=== PATIENT | male | born 1945 | race Caucasian/White ===

== ENCOUNTER 2021-10-23 08:30 | Inpatient (IN) | payer MEDICARE ==
[~2021-10-23] VITALS: Ht 193 cm; Wt 138.7 kg
[2021-10-23] VITALS (7 sets, daily range): BP systolic 114–148; BP diastolic 56–78
[2021-10-23] MEDS ORDERED: fentaNYL PF VIAL 100 MCG/2 ML VIAL ONE (08:40)
[2021-10-23] MEDS ORDERED: HEPARIN for IV BOLUS 10,000 UNIT/10 ML VIAL. ONE (08:40)
[2021-10-23] MEDS ORDERED: MIDAZOLAM HCL/PF 2 MG/2 ML VIAL. ONE (08:40)
[2021-10-23] MEDS ORDERED: VERAPAMIL 5 MG/2 ML VIAL. ONE (08:51)
[2021-10-23] MEDS ORDERED: NITROGLYCERIN 200 MCG/2 ML SYRINGE FOR CATH/VASC LAB. ONE (08:51)
[2021-10-23] MEDS ORDERED: fentaNYL PF VIAL 100 MCG/2 ML VIAL IV ONE (09:15)
[2021-10-23] MEDS ORDERED: MIDAZOLAM HCL/PF 2 MG/2 ML VIAL. IV ONE (09:15)
[2021-10-23] MEDS ORDERED: HEPARIN for IV BOLUS 10,000 UNIT/10 ML VIAL. IART ONE (09:15)
[2021-10-23] MEDS ORDERED: LIDOCAINE 1% Multi-Dose 20 ML VIAL. INJ ONE (09:15)
[2021-10-23] MEDS ORDERED: VERAPAMIL 5 MG/2 ML VIAL. IART ONE (09:15)
[2021-10-23] MEDS ORDERED: NITROGLYCERIN 200 MCG/2 ML SYRINGE FOR CATH/VASC LAB. IART ONE (09:15)
[2021-10-23] MEDS ORDERED: HEPARIN for IV BOLUS 10,000 UNIT/10 ML VIAL. IV PRN ×2 (09:45→10:45)
[2021-10-23] MEDS ORDERED: HEPARIN 25,000UTS/250ML PREMIX 250 ML IV PRN (10:00)
--- NOTE | 2021-10-23 10:13 | CARD ---
MR#: [id number] Date of Study: 10/23/2021 Ordering Physician: ROB FLOWER, Referring Physician: ROB FLOWER, Tech: RT Parviz(R) APPROVED REPORT Technologist: RT Parviz(R) Nurse: Kasey Ribeiro RN Procedure(s) performed: FL TIME: 10.9 MIN DOSE: 148 GYCM2 CONTRAST: 96 ML MODERATE SEDATION: 68 MINS Coronary angiography Bypass angiography Aortogram INDICATION The indication(s) include : abnormal ECG. [facility] Clinical Frailty Scale [facility] Clinical Frailty Scale: Severely Frail Heart Failure Heart Failure: Yes If Yes, Newly Diagnosed: No If Yes, HF Type: Systolic If Yes, NYHA Class: Class III CASE TECHNIQUE IV conscious sedation was used throughout procedure with appropriate monitoring and was performed in the presence of a registered nurse who was an independent trained observer other than the physician p erforming the procedure. During this case, Fluoroscopy and Iso-osmolar contrast were used for imaging . Specimen(s) Removed: N/A Estimated Blood loss: 15 cc's. PROCEDURE NARRATIVE Clinical information: 75-year-old male who earlier today had sudden onset of dyspnea and hypoxia. [facility] a bout of pneumonia requiring mechanical ventilation and tracheo stomy in August 2021 at [facility]. Patient has known ischemic cardiomyopathy with a p rior two-vessel bypass. An EKG demonstrated significant 3 to [address] segment depressio ns and therefore he was taken urgently to the catheterization laboratory. Procedure details: After appropriate informed consent the right groin and left wrist were prepped and draped in usual st erile fashion. Due to significant morbid obesity a decision was made to proceed with left radial acc ess. Under 1% lidocaine local anesthesia a 6 Yakut sheath was placed without difficulty. Diagnosti c angiography was then performed with a 6 Yakut JR4, JL 4, ADARSH catheters. An aortogram was then per formed with a pigtail catheter. At case completion all catheters and sheaths were removed and the le ft radial sheath was sutured in place. Findings: Aorta 140/80 Aortogram: Mild aortic dilation without any evidence of graft extending from the ascending aorta Coronary angiography: Left main is a large-caliber vessel with a distal 100% occlusion LAD is a moderate caliber vessel with a proximal 100% occlusion in the mid and distal vessel is seen to fill via a ADARSH graft. Distal to the graft there is mild diffuse disease D1 is a small caliber vessel with an ostial 100% occlusion and is seen to fill via retrograde from th e ADARSH graft. Left circumflex is a moderate caliber nondominant vessel with a proximal 100% occlusion. The distal vessel seen to fill via right to left collaterals RCA is a large-caliber dominant vessel with mild diffuse irregularities of up to 30% Bypass angiography: TINOCO to the LAD has a distal 90% anastomotic stenosis with a aneurysmal dilatation involving the anas tomosis SVG to presumably a obtuse marginal branch is occluded proximally Bedside echocardiography demonstrated moderate LV dysfunction with an ejection fraction of 40%. Conclusion 1. Severe two-vessel coronary artery disease and ischemic cardiomyopathy with an ejection fraction o f 40% Recommendations 1. Patient is acutely ill and currently on multiple anticoagulants including Eliquis for atrial fibr illation. He will require high risk PCI of the TINOCO to the LAD and given significant tortuosity of t he ADARSH graft he will be at risk for transient ischemia and may require mechanical circulatory support . Given his morbid obesity and prior history of significant peripheral arterial disease he may requi re axillary support. 2. We will discuss case with the patient's primary e commerce web developer at [facility] and con agriculture extension specialist transfer for high risk PCI with either stenting of the TINOCO graft or chronic total occlusion PC I. Signed by : Rob Flower, Electronically Approved : 10/23/2021 10:12:42
[2021-10-23 10:55] LABS: BASE EXCESS ABG 2 mmol/L (-3-3); HCO3 ABG 28 mmol/L (21-28); PCO2 ABG 52 mmHg (35-46); PO2 ABG 149 mmHg (65-108); SAT O2 ABG 99 % (92-99)
[2021-10-23 11:08] LABS: FIO2 ABG 100% VENT
--- NOTE | 2021-10-23 11:36 | NUR ---
SS following for discharge planning. SS reviewed pt chart and discussed with pt RN. Pt is from [facility]. Pt is currently on the vent at 100%. Peep of 12. Heparin drip. Cardiology requesting transfer to [facility] [place]. Case Management Director spoke with Dr. Hale at [facility]. Transfer request made to [facility] [place], ; fax [phone]. Packet, transfer form, and ambulance form on the chart. Images clouded. Face sheet faxed as requested. Currently awaiting bed assignment and report number. SS will continue to follow for discharge planning. Addendum: 10/23/21 at 1317 by FABIAN SHARMA SS Pt accepted at [facility]. CICU3. Accepting Physician Siobhan Aguirre. Report#[phone]. RN notified. Pt transferring via [facility] transport.
--- NOTE | 2021-10-23 12:17 | PDOC1 ---
History and Physical Date of Admission Date of Admission DATE: 10/23/21 TIME: 12:16 Identification/Chief Complaint Chief Complaint STEMI Source Source: Chart review History of Present Illness History of Present Illness Patient is a 75-year-old male with past medical history systolic CHF, A. fib, PAD, who presents as a transfer from [facility] due to STEMI. Patient denies any significant chest pain but STEMI was noted on monitor. His only complaint is shortness of breath. Consultation placed to cardiology, and he will be taken urgently to [facility]. Past Medical History Past Medical History A. fib, systolic CHF, PAD, CAD, CKD, pleural effusions, obesity, trach dependent Past Surgical History Past Surgical History Tracheostomy, PCI Family History Family History: Hypertension Current Medications Current Medications Current Medications Nitroglycerin (Nitroglycerin) 200 mcg 1X ONCE IART Last administered on 10/23/21at 09:15; Start 10/23/21 at 09:15; Stop 10/23/21 at 09:33; Status DC Verapamil HCl (Verapamil) 2.5 mg 1X ONCE IART Last administered on 10/23/21at 09:15; Start 10/23/21 at 09:15; Stop 10/23/21 at 09:33; Status DC Heparin Sodium (Porcine) (Heparin Sodium) 2,500 unit 1X ONCE IART Last admi nistered on 10/23/21at 08:52; Start 10/23/21 at 09:15; Stop 10/23/21 at 09:33; Status DC Heparin Sodium/ Sodium Chloride (HEPARIN for ARTERIAL LINE FLUSH) 1,000 unit 1X ONCE IART Last administered on 10/23/21at 09:15; Start 10/23/21 at 09:15; Stop 10/23/21 at 09:33; Status DC Midazolam HCl (Versed) 2 mg 1X ONCE IV Last administered on 10/23/21at 08:45; Start 10/23/21 at 09:15; Stop 10/23/21 at 09:33; Status DC Fentanyl Citrate (Fentanyl 2ml Vial) 100 mcg 1X ONCE IV Last administered on 10/23/21at 08:45; Start 10/23/21 at 09:15; Stop 10/23/21 at 09:33; Status DC Lidocaine HCl (Lidocaine 1% 20ml Vial) 20 ml 1X ONCE INJ Last administered on 10/23/21at 08:51; Start 10/23/21 at 09:15; Stop 10/23/21 at 09:33; Status DC Heparin Sodium/ Dextrose 250 ml @ 10 mls/hr CONT PRN IV PER PROTOCOL Last administered on 10/23/21at 10:41; Start 10/23/21 at 10:00 Heparin Sodium (Porcine) (Heparin Sodium) 3,650 unit PRN Q6HRS PRN IV FOR UFH LEVEL LESS THAN 0.2; Start 10/23/21 at 09:45; Stop 10/23/21 at 10:31; Status DC Heparin Sodium (Porcine) (Heparin Sodium) 3,500 unit PRN Q6HRS PRN IV FOR UFH LEVEL LESS THAN 0.2; Start 10/23/21 at 10:45 Allergies Allergies: Coded Allergies: No Known Drug Allergies (Unverified , 10/23/21) ROS Review of System GENERAL: No history of weight change, weakness or fevers. SKIN: No bruising, hair changes or rashes. EYES: No blurred, double or loss of vision. NOSE AND THROAT: No history of nosebleeds, hoarseness or sore throat. HEART: Denies chest pain, denies palpitations. LUNGS: Shortness of breath. Denies cough, hemoptysis, or wheezing. GASTROINTESTINAL: Denies nausea, vomiting, abdominal pain. GENITOURINARY: Denies dysuria, frequency, urgency, hematuria. NEUROLOGIC: Denies history of numbness, tingling, tremor or weakness. PSYCHIATRIC: Denies anxiety, denies depression. ENDOCRINE: No history of heat or cold intolerance, polyuria or polydipsia. EXTREMITIES: Denies muscle weakness, joint pain, pain on walking or stiffness. Physical Exam Physical Exam General: Alert, Cooperative, No acute distress. Obese. HEENT: PERRLA, EOMI Lungs: On ventilator, breathing via trach. Normal air movement Heart: RRR, no murmurs Cardiovascular: S1, S2 Abdomen: Normal bowel sounds, Soft, No tenderness Extremities: No clubbing, No cyanosis Skin: No rashes, No significant lesion Neuro: Unintelligible speech, Normal tone, Sensation intact Psych/Mental Status: Mental status NL, Mood NL Vitals Vitals Vital Signs Date Time Temp Pulse Resp B/P (MAP) Pulse Ox O2 Delivery O2 Flow Rate FiO2 10/23/21 12:10 100 10/23/21 12:00 Mechanical Ventilator 10/23/21 12:00 116 20 114/57 (76) 10/23/21 10:15 98.7 98.7 Labs Labs Laboratory Tests Test 10/23/21 09:33 10/23/21 10:25 Activated Clotting Time 165 sec (92-181) O2 Saturation 99 % (92-99) Arterial Blood pH 7.36 (7.35-7.45) Arterial Blood pCO2 at Patient Temp 52 mmHg (35-46) Arterial Blood pO2 at Patient Temp 149 mmHg (65-108) Arterial Blood HCO3 28 mmol/L (21-28) Arterial Blood Base Excess 2 mmol/L (-3-3) FiO2 100% vent Laboratory Tests Test 10/23/21 09:33 10/23/21 10:25 Activated Clotting Time 165 sec (92-181) O2 Saturation 99 % (92-99) Arterial Blood pH 7.36 (7.35-7.45) Arterial Blood pCO2 at Patient Temp 52 mmHg (35-46) Arterial Blood pO2 at Patient Temp 149 mmHg (65-108) Arterial Blood HCO3 28 mmol/L (21-28) Arterial Blood Base Excess 2 mmol/L (-3-3) FiO2 100% vent Images Images PATIENT: ABDULLAHI ANGUIANO ACCOUNT: [id number] : 1945 LOCATION: [address] [place] [address] AGE: 75 SEX: M EXAM STATUS: ADM IN ORD. PHYSICIAN: ROB DUGGAN MD REASON: PROCEDURE: Coronaries By-Pass Graft MR#: [id number] Date of Study: 10/23/2021 Ordering Physician: ROB DUGGAN, Referring Physician: ROB DUGGAN, Tech: RT Parviz(R) APPROVED REPORT Technologist: RT Parviz(R) Nurse: Kasey Ribeiro RN Procedure(s) performed: FL TIME: 10.9 MIN DOSE: 148 GYCM2 CONTRAST: 96 ML MODERATE SEDATION: 68 MINS Coronary angiography Bypass angiography Aortogram INDICATION The indication(s) include : abnormal ECG. [facility] Clinical Frailty Scale [facility] Clinical Frailty Scale: Severely Frail Heart Failure Heart Failure: Yes If Yes, Newly Diagnosed: No If Yes, HF Type: Systolic If Yes, NYHA Class: Class III CASE TECHNIQUE IV conscious sedation was used throughout procedure with appropriate monitoring and was performed in the presence of a registered nurse who was an independent trained observer other than the physician performing the procedure. During this case, Fluoroscopy and Iso-osmolar contrast were used for imaging. Specimen(s) Removed: N/A Estimated Blood loss: 15 cc's. PROCEDURE NARRATIVE Clinical information: 75-year-old male who earlier today had sudden onset of dyspnea and hypoxia. [facility] a bout of pneumonia requiring mechanical ventilation and tracheostomy in August 2021 at [facility]. Patient has known ischemic cardiomyopathy with a prior two- vessel bypass. An EKG demonstrated significant 3 to [address] segment depressions and therefore he was taken urgently to the catheterization laboratory. Procedure details: After appropriate informed consent the right groin and left wrist were prepped and draped in usual sterile fashion. Due to significant morbid obesity a decision was made to proceed with left radial access. Under 1% lidocaine local anesthesia a 6 Ghanaian sheath was placed without difficulty. Diagnostic angiography was then performed with a 6 Ghanaian JR4, JL 4, ADARSH catheters. An aortogram was then performed with a pigtail catheter. At case completion all catheters and sheaths were removed and the left radial sheath was sutured in place. Findings: Aorta 140/80 Aortogram: Mild aortic dilation without any evidence of graft extending from the ascending aorta Coronary angiography: Left main is a large-caliber vessel with a distal 100% occlusion LAD is a moderate caliber vessel with a proximal 100% occlusion in the mid and distal vessel is seen to fill via a ADARSH graft. Distal to the graft there is mild diffuse disease D1 is a small caliber vessel with an ostial 100% occlusion and is seen to fill via retrograde from the ADARSH graft. Left circumflex is a moderate caliber nondominant vessel with a proximal 100% oc clusion. The distal vessel seen to fill via right to left collaterals RCA is a large-caliber dominant vessel with mild diffuse irregularities of up to 30% Bypass angiography: TINOCO to the LAD has a distal 90% anastomotic stenosis with a aneurysmal dilatat ion involving the anastomosis SVG to presumably a obtuse marginal branch is occluded proximally Bedside echocardiography demonstrated moderate LV dysfunction with an ejection fraction of 40%. Conclusion 1. Severe two-vessel coronary artery disease and ischemic cardiomyopathy with an ejection fraction of 40% Recommendations 1. Patient is acutely ill and currently on multiple anticoagulants including Eliquis for atrial fibrillation. He will require high risk PCI of the TINOCO to the LAD and given significant tortuosity of the ADARSH graft he will be at risk for transient ischemia and may require mechanical circulatory support. Given his morbid obesity and prior history of significant peripheral arterial disease he may require axillary support. 2. We will discuss case with the patient's primary laborer laboratory at [facility] and consider transfer for high risk PCI with either stenting of the TINOCO graft or chronic total occlusion PCI. VTE Prophylaxis Ordered VTE Prophylaxis Devices: No VTE Pharmacological Prophylaxi: Yes Assessment/Plan Assessment/Plan STEMI CAD CKD Trach dependent Obesity Plan: Patient was taken urgently to [facility], however PCI was reportedly too high risk to proceed with that at this facility. He will need to transfer to facility with CT surgery as a surgical backup for high risk PCI. Had coronary arteriogram that showed severe two-vessel coronary artery disease and ischemic cardiomyopathy with an ejection fraction of 40%. Currently on vent and 100% FiO2, PEEP 12, and heparin gtt. cardiology has requested transfer to [facility]. Her laborer laboratory spoke with Dr. Hale who is excepted patient for transfer. Critical care time 32 minutes spent reviewing charts, reviewing labs, reviewing imaging, discussion with RN, discussion with social research assistant, and discussion with at bedside. Justifications for Admission Other Justification HAN TYLER MD Oct 23, 2021 12:17
--- NOTE | 2021-10-23 12:57 | PDOC3 ---
Discharge Summary Visit Information Date of Admission: Oct 23, 2021 Date of Discharge: Oct 23, 2021 Brief Hospital Course Allergies Allergies Coded Allergies Type Severity Reaction Last Updated Verified No Known Drug Allergies 10/23/21 No Vital Signs Vital Signs Date Time Temp Pulse Resp B/P (MAP) Pulse Ox O2 Delivery O2 Flow Rate FiO2 10/23/21 12:10 100 10/23/21 12:00 Mechanical Ventilator 10/23/21 12:00 116 20 114/57 (76) 10/23/21 10:15 98.7 98.7 Lab Results Laboratory Tests Test 10/23/21 09:33 10/23/21 10:25 Activated Clotting Time 165 sec (92-181) O2 Saturation 99 % (92-99) Arterial Blood pH 7.36 (7.35-7.45) Arterial Blood pCO2 at Patient Temp 52 mmHg (35-46) Arterial Blood pO2 at Patient Temp 149 mmHg (65-108) Arterial Blood HCO3 28 mmol/L (21-28) Arterial Blood Base Excess 2 mmol/L (-3-3) FiO2 100% vent Laboratory Tests Test 10/23/21 09:33 10/23/21 10:25 Activated Clotting Time 165 sec (92-181) O2 Saturation 99 % (92-99) Arterial Blood pH 7.36 (7.35-7.45) Arterial Blood pCO2 at Patient Temp 52 mmHg (35-46) Arterial Blood pO2 at Patient Temp 149 mmHg (65-108) Arterial Blood HCO3 28 mmol/L (21-28) Arterial Blood Base Excess 2 mmol/L (-3-3) FiO2 100% vent Brief Hospital Course Mr. Fernandez is a 75 old male who presented as a transfer from [facility] with STEMI. He was taken urgently to [facility], however PCI was reportedly too high risk to proceed with that at this facility. He will need to transfer to facility with CT surgery as a surgical backup for high risk PCI. Had coronary arteriogram that showed severe two-vessel coronary artery disease and ischemic cardiomyopathy with an ejection fraction of 40%. Currently on vent and 100% FiO2, PEEP 12, and heparin gtt. cardiology has requested transfer to [facility]. Our director radio spoke with Dr. Hale who is excepted patient for transfer. Discharge Information Condition at Discharge: Comment (Guarded) Disposition/Orders: D/C to Another Facility Justicifation of Admission Dx: Justifications for Admission: Justification of Admission Dx: Yes HAN TYLER MD Oct 23, 2021 12:57
--- NOTE | 2021-10-23 16:30 | CARD ---
MR#: [id number] Date of Study: 10/23/2021 Ordering Physician: ROB DUGGAN, Referring Physician: ROB DUGGAN, Tech: Na Remy [facility] APPROVED REPORT EXAM: LIMITED Two-dimensional and M-mode echocardiogram. Other Information Quality : AverageHR: 99bpm Rhythm : NSR INDICATION Cardiac Disease: CAD LEFT VENTRICLE The left ventricle is normal size. There is normal left ventricular wall thickness. The left ventricl e systolic function appears to be moderately impaired. The ejection fraction is estimated at 35 to 40 %. The left ventricular diastolic function is normal. No left ventricle thrombus noted on this study. There is no ventricular septal defect visualized. There is no left ventricular aneurysm. There is no mass noted in the left ventricle. RIGHT VENTRICLE The right ventricle is normal size. There is normal right ventricular wall thickness. The right ventr icular systolic function is normal. ATRIA The left atrium size is normal. The right atrium size is normal. The interatrial septum is intact wit h no evidence for an atrial septal defect or patent foramen ovale as noted on 2-D or Doppler imaging. AORTIC VALVE The aortic valve is normal in structure and function. There is no significant aortic valvular stenosi s. MITRAL VALVE The mitral valve is normal in structure and function. TRICUSPID VALVE The tricuspid valve is normal in structure and function. GREAT VESSELS The aortic root is not well visualized. The ascending aorta is not well seen. PERICARDIAL EFFUSION There is no evidence of significant pericardial effusion. Critical Notification Critical Value: No <Conclusion> Limited 2D echo, technically very difficult study. Endocardium poorly visualized. The left ventricle systolic function appears to be moderately impaired. The ejection fraction is estimated at 35 to 40%. There is no evidence of significant pericardial effusion. Signed by : Karsten Quintanilla, Electronically Approved : 10/23/2021 16:29:55
== END 2021-10-23 14:15 | disposition short-term general hospital (02) | DRG 281 ==
LOC: EDSTATUS 08:30 → 1 WEST ICU 09:24
PROVIDERS: ADMIT Family Medicine; ATTEND Family Medicine
PROC: 5A1935Z Respiratory Ventilation, Less than 24 Consecutive Hours (ICD-10-PCS; principal; 2021-10-23)
PROC: 0BH17EZ Insertion of Endotracheal Airway into Trachea, Via Natural or Artificial Opening (ICD-10-PCS; 2021-10-23)
PROC: 4A023N7 Measurement of Cardiac Sampling and Pressure, Left Heart, Percutaneous Approach (ICD-10-PCS; 2021-10-23)
PROC: B2111ZZ Fluoroscopy of Multiple Coronary Arteries using Low Osmolar Contrast (ICD-10-PCS; 2021-10-23)
PROC: B2131ZZ Fluoroscopy of Multiple Coronary Artery Bypass Grafts using Low Osmolar Contrast (ICD-10-PCS; 2021-10-23)
PROC: B2181ZZ Fluoroscopy of Left Internal Mammary Bypass Graft using Low Osmolar Contrast (ICD-10-PCS; 2021-10-23)
PROC: B3101ZZ Fluoroscopy of Thoracic Aorta using Low Osmolar Contrast (ICD-10-PCS; 2021-10-23)
DX: I21.3 ST elevation (STEMI) myocardial infarction of unspecified site (principal); I50.22 Chronic systolic (congestive) heart failure; I25.10 Atherosclerotic heart disease of native coronary artery without angina pectoris; I25.5 Ischemic cardiomyopathy; I48.91 Unspecified atrial fibrillation; N18.9 Chronic kidney disease, unspecified; Z82.49 Family history of ischemic heart disease and other diseases of the circulatory system; E66.01 Morbid (severe) obesity due to excess calories; Z68.37 Body mass index [BMI] 37.0-37.9, adult
CPT/HCPCS: 36600; 82805; 85347; 93308; 93455; 93567; 94002; 99152; 99153; C1894; J1644; J2250; J3010; J3490; G0378